=== PATIENT | male | born 1955 | race Caucasian/White ===

== ENCOUNTER 2023-02-14 16:00 | Emergency (ER) | payer OTHER ==
[~2023-02-14] VITALS: Ht 170.2 cm; Wt 74.8 kg
--- NOTE | 2023-02-14 16:10 | NUR ---
DR LOCKHART AT BEDSIDE FOR EVAL.
--- NOTE | 2023-02-14 16:26 | NUR ---
BIBRA [id number] & [id number] FOR SUICIDAL IDEATION. NO PLAN. THE PATIENT DENIES HI. DENIES HAVING ANY VISUAL OR AUDITORY HALLUCINATIONS. DENIES PAIN. IN ROOM AIR AND DENIES SOB. RESPIRATION REGULAR AND UNLABORED. WILL CONTINUE TO MONITOR THE PATIENT.
[2023-02-14] MEDS ORDERED: ONDANSETRON 4 MG TAB.RAPDIS PO ONE (16:30)
[2023-02-14 17:11] LABS: BASOPHILS % (AUTO) 0.5 % (0.0-2.0); EOSINOPHILS % (AUTO) 2.6 % (0.0-6.0); HEMATOCRIT 44 % (39-51); HEMOGLOBIN 14.9 g/dL (13.5-17.5); LYMPHOCYTES # (AUTO) 1.8 K/uL (0.8-4.8); LYMPHOCYTES % (AUTO) 21.6 % (20.0-44.0); MEAN CORPUSCULAR HGB CONC 34 g/dl (31.0-36.0); MEAN CORPUSCULAR VOLUME 92 fL (80-96); MONOCYTES # (AUTO) 0.8 K/uL (0.1-1.30); NEUTROPHILS # (AUTO) 5.3 K/uL (1.8-8.9); NEUTROPHILS % (AUTO) 65.3 % (43.0-81.0); PLATELET COUNT (AUTO) 360 K/uL (150-450); RED BLOOD CELL COUNT(AUTO) 4.86 MIL/uL (4.5-6.0); WHITE BLOOD COUNT (AUTO) 8.1 K/uL (4.3-11.0)
[2023-02-14] MEDS ORDERED: ONDANSETRON 4 MG TAB.RAPDIS ONE (17:23)
[2023-02-14 17:31] LABS: ALANINE AMINOTRANSFERASE 79 U/L (12-78); ALBUMIN 3.9 g/dL (3.4-5.0); ALKALINE PHOSPHATASE 117 U/L (46-116); ASPARTATE AMINOTRANSFERASE 46 U/L (15-37); BILIRUBIN,DIRECT 0.1 mg/dL (0.0-0.2); BILIRUBIN,TOTAL 0.4 mg/dL (0.2-1.0); CARBON DIOXIDE 25 mmol/L (21-32); CHLORIDE 98 mmol/L (98-107); CREATININE 1.7 mg/dL (0.6-1.3); GLUCOSE 110 mg/dL (74-106); POTASSIUM 3.6 mmol/L (3.5-5.1); SODIUM SERUM 137 mmol/L (136-145); TOTAL PROTEIN, SERUM 8.3 g/dL (6.4-8.2); UREA NITROGEN, BLOOD 39 mg/dL (7-18)
[2023-02-14 17:32] LABS: ALCOHOL, BLOOD < 3 mg/dL (0-0)
[2023-02-14 17:40] LABS: BILIRUBIN,URINE 2+ (NEGATIVE); COLOR,URINE YELLOW (YELLOW); LEUKOCYTE ESTERASE ,URINE NEGATIVE (NEGATIVE); NITRITE, URINE NEGATIVE (NEGATIVE); PROTEIN,URINE 1+ mg/dl (NEGATIVE); UGLUCOSE NEGATIVE (NEGATIVE)
[2023-02-14] MEDS ORDERED: IV NS 0.9% 1,000 ML IV ONE (18:00)
--- NOTE | 2023-02-14 18:15 | NUR ---
PT C/O R HIP PAIN STATES HE HAD TOTAL HIP REPLACEMENT 5 YEARS AGO AND SINCE HE'SS BEEN FALLING OFF LATELY HE'S BEEN VAVING R HIP PAIN. DR LOCKHART AWARE.
[2023-02-14 18:27] LABS: RBC,URINE NONE SEEN /HPF (0-2); WBC,URINE NONE SEEN /HPF (0-3)
[2023-02-14 18:28] LABS: BACTERIA,URINE Rare /HPF (None Seen); HYALINE CASTS, URINE 10 /LPF (None Seen); MUCUS,URINE Moderate /LPF (None Seen); SQUAMOUS EPITHELIAL CELL,UR None Seen /HPF (None Seen)
--- NOTE | 2023-02-14 21:04 | NUR ---
LUIS E FROM CRISIS TEAM AT BED SIDE
--- NOTE | 2023-02-15 00:29 | NUR ---
CLINICALS FAXED TO [facility]
--- NOTE | 2023-02-15 01:28 | NUR ---
SPOKE TO CRUZITO AT [facility] . NO BED AVAILABLE UNTIL 10 AM
--- NOTE | 2023-02-15 09:35 | NUR ---
BREAKFAST SERVED. THE PATIENT KENDRICK IT WELL.
--- NOTE | 2023-02-15 12:00 | NUR ---
LUNCH SERVED. THE PATIENT TOLERATED WELL.
--- NOTE | 2023-02-15 16:39 | NUR ---
Magdi fitzpatrick in [facility] - 02/15/23 at 1721 by INESSA Patient discharged to [facility] in stable condition. Written and verbal after care instructions given.
--- NOTE | 2023-02-16 00:19 | NUR ---
SPOKE TO CRUZITO AT [facility], NEED ANOTHER COVID TEST WITHIN 24 HOURS
--- NOTE | 2023-02-16 02:58 | NUR ---
faxed recent covid result to [facility]
--- NOTE | 2023-02-16 03:38 | NUR ---
GOT ACCEPTED AT [facility]. [facility] ETA: < 1 HOUR
[2023-02-16 05:00] VITALS: BP 134/81
--- NOTE | 2023-02-16 05:20 | NUR ---
PICKED UP BY TRANSPORT IN STABLE CONDITION
== END 2023-02-16 05:29 ==
LOC: ER 16:05
DX: R45.851 Suicidal ideations (principal); I10 Essential (primary) hypertension; Z20.822 Contact with and (suspected) exposure to COVID-19; Z88.1 Allergy status to other antibiotic agents
CPT/HCPCS: 99285; 96360; 72170; 85025; 80048; 80076; 81001; 36415; 87426 ×2; 80143; 80320; 80307; J7030; Q0162; C9803 ×2; G0480